=== PATIENT | male | born 1960 | race Caucasian/White ===

== ENCOUNTER → 2020-11-22 | Outpatient (CLI) | payer OTHER ==
[~2020-11-22] MED LIST: AMLO1TAB25; B-12100T2 PO; CHLO125TA; ECOT81TA5 PO; HUMI40IN2; LOSA100T50; MAGN250T7 PO; METF500T13; POTA10CA32 PO; SPIR-10; ZYLO300T6
== END ==
LOC: M LABSMTC 11:21
PROVIDERS: ATTEND Anesthesiology
DX: Z01.812 Encounter for preprocedural laboratory examination (principal); Z20.822 Contact with and (suspected) exposure to COVID-19

== ENCOUNTER 2020-11-27 09:55 | Day surgery (SDC) | payer OTHER ==
[~2020-11-27] VITALS: Ht 190.5 cm; Wt 122.9 kg
[~2020-11-27 09:55] MED LIST changes: -B-12100T2 PO; -MAGN250T7 PO; +NS 1,000 ML IV ONE; -POTA10CA32 PO
[2020-11-27] MEDS ORDERED: B-12100T2 PO (10:19)
[2020-11-27] MEDS ORDERED: POTA10CA32 PO (10:19)
[2020-11-27] MEDS ORDERED: MAGN250T7 PO (10:19)
[2020-11-27] MEDS ORDERED: LIDOCAINE 2% 100MG/5ML SDV (FOR ANES.) As Ordered ONE (10:42)
[2020-11-27] MEDS ORDERED: propofoL 200 MG/20 ML VIAL As Ordered ONE ×2 (10:42→10:55)
--- NOTE | 2020-11-27 11:24 | ROOR ---
Patient Name: Justin Tran Procedure Date: 11/27/2020 10:53 AM Date of : 1960 Age: 60 Room: [facility] Gender: Male Note Status: Finalized Procedure: Total Colonoscopy to cecum + Bx. Indications: High risk colon cancer surveillance: Ulcerative pancolitis of 8 (or more) years duration Providers: Sagar Hernandez MD Referring MD: Brunilda MAYORGA DO Requesting Provider: Medicines: Monitored Anesthesia Care Complications: No immediate complications. Procedure: Pre-Anesthesia Assessment: - The heart rate, respiratory rate, oxygen saturations, blood pressure, adequacy of pulmonary ventilation, and response to care were monitored throughout the procedure. The Colonoscope was introduced through the anus and advanced to the cecum, identified by appendiceal orifice and ileocecal valve. The colonoscopy was performed without difficulty. The patient tolerated the procedure well. The quality of the bowel preparation was excellent. Findings: The perianal and digital rectal examinations were normal. Non-bleeding internal hemorrhoids were found during retroflexion. The hemorrhoids were small and Grade I (internal hemorrhoids that do not prolapse). No other significant abnormalities were identified in a careful examination of the remainder of the colon. The exam was otherwise without abnormality on direct and retroflexion views. Background biopsies were taken for histology with a cold forceps from the ascending colon, transverse colon, descending colon and rectosigmoid colon. These biopsy specimens were sent to Pathology. The exam was otherwise without abnormality on direct and retroflexion views. Impression: - Non-bleeding internal hemorrhoids. - The examination was otherwise normal on direct and retroflexion views. - The examination was otherwise normal on direct and retroflexion views. - Background biopsies were taken from the ascending colon, transverse colon, descending colon and rectosigmoid colon. - The exam was otherwise normal to the cecum. Recommendation: - Patient has a contact number available for emergencies. The signs and symptoms of potential delayed complications were discussed with the patient. Return to normal activities tomorrow. Written discharge instructions were provided to the patient. - High fiber diet. - Discharge patient to home. - Continue present medications. - Await pathology results. - Repeat colonoscopy in 5 years for surveillance based on pathology results. - Return to referring physician. - Telephone GI clinic for pathology results in 1 week. - The findings and recommendations were discussed with the patient's family. Procedure Code(s): --- Professional --- 41110, Colonoscopy, flexible; with biopsy, single or multiple Diagnosis Code(s): --- Professional --- K51.00, Ulcerative (chronic) pancolitis without complications K64.0, First degree hemorrhoids CPT copyright 2019 [employer]. All rights reserved. The codes documented in this report are preliminary and upon jordan man review may be revised to meet current compliance requirements. Sagar Hernandez MD Sagar Hernandez MD 11/27/2020 11:23:38 AM Electronically signed by Sagar Hernandez MD Number of Addenda: 0 Note Initiated On: 11/27/2020 10:53 AM Estimated Blood Loss: Estimated blood loss: none.
[2020-11-27 11:40] VITALS: BP 143/90
== END 2020-11-27 11:47 | disposition home or self-care (01) ==
LOC: M OPP 09:55
PROVIDERS: ATTEND Internal Medicine Gastroenterology
DX: K63.89 Other specified diseases of intestine (principal); K64.0 First degree hemorrhoids; K51.00 Ulcerative (chronic) pancolitis without complications; Z79.4 Long term (current) use of insulin; Z79.82 Long term (current) use of aspirin; Z79.899 Other long term (current) drug therapy

== ENCOUNTER → 2024-05-08 | Outpatient (CLI) | payer OTHER ==
[~2024-05-08] MED LIST changes: +B-12100T2 PO; +LOSA100T46; -LOSA100T50; +MAGN250T7 PO; -NS 1,000 ML IV ONE; +POTA10CA70 PO
== END ==
LOC: M PLAIMG 09:42
PROVIDERS: ATTEND Nurse Practitioner Adult Health
DX: R55 Syncope and collapse (principal)